=== PATIENT | male | born 1995 | race Caucasian/White ===

== ENCOUNTER 2020-01-24 11:15 | Outpatient (RCR) | payer OTHER | END 2020-03-17 | disposition home or self-care (01) | LOC: MKS.ESL.PT | DX: S89.91XA Unspecified injury of right lower leg, initial encounter (principal) ==

== ENCOUNTER 2020-01-24 12:58 | Outpatient (RCR) | payer OTHER | END 2020-02-17 | disposition home or self-care (01) | LOC: WSOH | DX: S87.01XD Crushing injury of right knee, subsequent encounter (principal); S81.001D Unspecified open wound, right knee, subsequent encounter; S80.211D Abrasion, right knee, subsequent encounter; Z90.49 Acquired absence of other specified parts of digestive tract; F17.290 Nicotine dependence, other tobacco product, uncomplicated | CPT/HCPCS: 24774; L1810 ==